=== PATIENT | male | born 1955 | race African-American/Black ===

== ENCOUNTER 2016-12-22 18:45 | Inpatient (IN) | payer OTHER ==
[2016-12-22 19:14] VITALS: BMI 22.3
[2016-12-22] MEDS ORDERED: MENTHOL/PHENOL 1 EACH UD MM PRN (19:44)
[2016-12-22] MEDS ORDERED: IBUPROFEN 400 MG TABLET (FP) PO PRN (19:44)
[2016-12-22] MEDS ORDERED: guaiFENesin/D-METHORPHAN HB 10 ML UNIT-DOSE CUPS PO PRN (19:44)
[2016-12-22] MEDS ORDERED: MAGNESIUM CITRATE 300 ML BOTTLE PO PRN (19:44)
[2016-12-22] MEDS ORDERED: LOPERAMIDE HCL 2 MG CAPSULE PO PRN (19:44)
[2016-12-22] MEDS ORDERED: hydrOXYzine PAMOATE 50 MG CAPSULE (FP) PO PRN (19:44)
[2016-12-22] MEDS ORDERED: NICOTINE POLACRILEX 2 MG GUM BC PRN (19:44)
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
[2016-12-22] MEDS: RANITIDINE HCL 150 MG TABLET (FP) PO SCH (21:52)
[2016-12-22] MEDS: THIAMINE HCL 100 MG TABLET (FP) PO SCH (21:52)
[2016-12-22] MEDS: RALTEGRAVIR POTASSIUM 400 MG TAB PO SCH (21:53)
[2016-12-22] MEDS: INSULIN SLIDING SCALE (NOVOLOG) 1 VIAL SQ SCH (21:55)
[2016-12-22] MEDS ORDERED: INSULIN (NOVOLOG) ASPART 100 UNITS/ML 10ML VIAL ONE (21:56)
[2016-12-22] MEDS: hydrALAZINE HCL 25 MG TABLET (FP) PO SCH (22:54)
[2016-12-22] MEDS: TAMSULOSIN HCL 0.4 MG CAP.ER.24H (FP) PO SCH (22:54)
[2016-12-22] MEDS: diphenhydrAMINE HCL 50 MG CAPSULE PO PRN (22:55)
[2016-12-22] MEDS: ETRAVIRINE 200 MG TABLET PO SCH (23:25)
[2016-12-22 23:34] LABS: URINE APPEARANCE CLEAR; URINE BILIRUBIN NEGATIVE (NEGATIVE); URINE BLOOD NEGATIVE (NEGATIVE); URINE COLOR YELLOW; URINE GLUCOSE (UA) 3+ (NEGATIVE); URINE KETONE NEGATIVE (NEGATIVE); URINE LEUK ESTERASE NEGATIVE (NEGATIVE); URINE NITRITE NEGATIVE (NEGATIVE); URINE UROBILINOGEN NEGATIVE E.U./dl (0.2-1.0)
[2016-12-22 23:35] LABS: URINE PROTEIN 1+ (NEGATIVE)
[2016-12-22 23:38] LABS: URINE HYALINE CAST 1 /lpf; URINE MUCUS RARE; URINE WBC 1 /hpf (3-5)
--- NOTE | 2016-12-23 06:36 | HP ---
Psychiatrist Admission - Data Date of interview: 12/23/16 Admission source: [facility] detox Identifying data: This is the first [facility] admission for this 61 years old single male, father of 2 children, unemployed on SSI, domiciled living in his own rented apartment Medical History: Significant for HTN, type II DM, BPH, HIV+, S/P surgery for removal of right rib and S/P surgery right temporal skull Psychiatric History: Reports that his first psychiatric contact was 5 years ago when he saw a private psychiatrist in the [place] for depression and was prescribed Zoloft which he took for 2 years. Claims he stopped taking it because he was feeling better. At present, denies feeling depressed but sleeps poorly because he is not drinking alcohol. Physical/Sexual Abuse/Trauma History: Denies history of physical, sexual abuse as wel as DV relationship Additional Comment: Denies criminal history. No service Vital Signs: Vital Signs - 24 hr 12/22/16 12/23/16 12/23/16 19:03 00:30 03:30 Temperature 96.8 F L Pulse Rate 104 H Respiratory 18 18 18 Rate Blood Pressure 117/65 Allergies/Adverse Reactions: Allergies Allergy/AdvReac Type Severity Reaction Status Date / Time No Known Allergies Allergy Verified 12/22/16 19:20 Date of last physical exam: 12/22/16 Concur with the findings of this exam: Yes - Substance Abuse/Tx History Hx Alcohol Use: Yes Hx Substance Use: Yes Substance Use Type: Alcohol (Started drinking alcohol at age 18, consumes 3x 6Pk daily. Last drink on 12/21/16), Cocaine (Started smoking crack cocaine at age 48, consumes 2 bags daily. Last smoked on 12/21/16) Hx Substance Use Treatment: Yes (One previous recent detox @ [facility]. [facility] in rehab) - Admission Criteria Previous failed treatment: No Poor recovery environment: Yes Comorbidities: Yes Lacks judgement: Yes Mental Status Exam - Mental Status Exam Alert and Oriented to: Time, Place, Person Cognitive Function: Fair Patient Appearance: Well Groomed Mood: Hopeful, Euthymic Patient Behavior: Cooperative Speech Pattern: Clear Voice Loudness: Normal Thought Process: Intact Thought Disorder: Not Present Hallucinations: Denies Suicidal Ideation: Denies Homicidal Ideation: Denies Insight/Judgement: Fair Sleep: Poorly Appetite: Good Muscle strength/Tone: Normal Gait/Station: Normal Psychiatric Findings - Problem List ([place] 1, 2,3) (1) Alcohol dependence with uncomplicated withdrawal Current Visit: Yes Status: Acute (2) Cocaine dependence Current Visit: Yes Status: Acute (3) Nicotine dependence Current Visit: Yes Status: Acute Qualifiers: Nicotine product type: cigarettes Substance use status: in withdrawal Qualified Code(s): F17.213 - Nicotine dependence, cigarettes, with withdrawal (4) Substance-induced sleep disorder Current Visit: Yes Status: Acute (5) BPH (benign prostatic hyperplasia) Current Visit: Yes Status: Acute Qualifiers: Prostatic enlargement morphology: non-nodular Lower urinary tract symptom presence: symptoms absent Qualified Code(s): N40.0 - Enlarged prostate without lower urinary tract symptoms (6) Diabetes mellitus, type II, insulin dependent Current Visit: Yes Status: Acute (7) GERD (gastroesophageal reflux disease) Current Visit: Yes Status: Acute Qualifiers: Esophagitis presence: without esophagitis Qualified Code(s): K21.9 - Gastro-esophageal reflux disease without esophagitis (8) HIV (human immunodeficiency virus infection) Current Visit: Yes Status: Acute (9) Hypertension Current Visit: Yes Status: Acute Qualifiers: Hypertension type: essential hypertension Qualified Code(s): I10 - Essential (primary) hypertension (10) MDD (major depressive disorder), single episode, in full remission Current Visit: Yes Status: Acute - Initial Treatment Plan Initial Treatment Plan: Monitor progress
[2016-12-23] MEDS: INSULIN SLIDING SCALE (NOVOLOG) 1 VIAL SQ SCH ×4 (07:21→21:30)
[2016-12-23] MEDS: metFORMIN HCL 500 MG TABLET (FP) PO SCH ×2 (07:21→16:55)
[2016-12-23] MEDS ORDERED: INSULIN (NOVOLOG) ASPART 100 UNITS/ML 10ML VIAL ONE ×3 (07:30→22:28)
[2016-12-23] MEDS ORDERED: TUBERCULIN PPD 5 TU/0.1ML VIAL ID ONE (07:47)
[2016-12-23] MEDS: RANITIDINE HCL 150 MG TABLET (FP) PO SCH ×2 (10:06→21:24)
[2016-12-23] MEDS: PRENATAL VITAMINS W/ FOLIC ACID TABLET (FP) PO SCH (10:06)
[2016-12-23] MEDS: RALTEGRAVIR POTASSIUM 400 MG TAB PO SCH ×2 (10:06→22:04)
[2016-12-23] MEDS: LOSARTAN POTASSIUM 50 MG TABLET (FP) PO SCH (10:06)
[2016-12-23] MEDS: NICOTINE 14 MG/24 HOURS TOPICAL PATCH TD SCH (10:07)
[2016-12-23] MEDS: ETRAVIRINE 200 MG TABLET PO SCH ×2 (10:08→22:04)
[2016-12-23] MEDS: RITONAVIR 100 MG TABLET PO SCH (10:09)
[2016-12-23] MEDS: hydrALAZINE HCL 25 MG TABLET (FP) PO SCH ×2 (10:09→22:03)
--- NOTE | 2016-12-23 10:46 | EKG ---
Test Reason : Blood Pressure : / mmHG Vent. Rate : 093 BPM Atrial Rate : 093 BPM P-R Int : 146 ms QRS Dur : 070 ms QT Int : 330 ms P-R-T Axes : 043 064 054 degrees QTc Int : 410 ms SINUS RHYTHM WITH OCCASIONAL PREMATURE VENTRICULAR COMPLEXES NO PREVIOUS ECGS AVAILABLE Confirmed by ROMULO KESSLER MD ([id number]) on 12/23/2016 10:46:40 AM Referred By: Confirmed By:ROMULO KESSLER MD
[2016-12-23 13:31] LABS: MCH 25.2 pg (25.7-33.7); MCHC 30.9 g/dl (32.0-35.9); MEAN CELL VOLUME 81.5 fl (80-96); MEAN PLT VOLUME 10.3 fl (7.5-11.1); PLATELET COUNT 227 K/MM3 (134-434); RDW 15.2 % (11.9-15.9); WHITE BLOOD COUNT 7.1 K/mm3 (4.0-10.0)
[2016-12-23 13:57] LABS: ALBUMIN 3.5 g/dl (3.4-5.0); ANION GAP 12 (8-16); BILIRUBIN,TOTAL 0.4 mg/dL (0.2-1.0); CALCIUM 9.3 mg/dL (8.5-10.1); CO2 23 mmol/L (21-32); GLUCOSE,RANDOM 142 mg/dL (74-106); SGOT/AST 12 U/L (15-37); SGPT/ALT 20 U/L (12-78)
[2016-12-23 13:58] LABS: ALK PHOS 85 U/L (45-117); CREATININE 1.2 mg/dL (0.7-1.3); TOT PROT 7.9 g/dl (6.4-8.2)
[2016-12-23 14:16] LABS: HIV 1 & 2 AB PRELIMINARY POSITIVE; HIV 1 AGp24 NEGATIVE
[2016-12-23] MEDS: diphenhydrAMINE HCL 50 MG CAPSULE PO PRN (21:24)
[2016-12-23] MEDS: THIAMINE HCL 100 MG TABLET (FP) PO SCH (21:24)
[2016-12-23] MEDS: TAMSULOSIN HCL 0.4 MG CAP.ER.24H (FP) PO SCH (22:04)
[2016-12-24] MEDS: INSULIN SLIDING SCALE (NOVOLOG) 1 VIAL SQ SCH ×4 (07:04→21:34)
[2016-12-24] MEDS: metFORMIN HCL 500 MG TABLET (FP) PO SCH ×2 (07:04→16:48)
[2016-12-24] MEDS ORDERED: INSULIN (NOVOLOG) ASPART 100 UNITS/ML 10ML VIAL ONE ×3 (07:05→22:25)
[2016-12-24] MEDS: PRENATAL VITAMINS W/ FOLIC ACID TABLET (FP) PO SCH (10:08)
[2016-12-24] MEDS: NICOTINE 14 MG/24 HOURS TOPICAL PATCH TD SCH (10:08)
[2016-12-24] MEDS: RANITIDINE HCL 150 MG TABLET (FP) PO SCH ×2 (10:08→21:32)
[2016-12-24] MEDS: LOSARTAN POTASSIUM 50 MG TABLET (FP) PO SCH (10:08)
[2016-12-24] MEDS: RALTEGRAVIR POTASSIUM 400 MG TAB PO SCH ×2 (10:08→21:34)
[2016-12-24] MEDS: hydrALAZINE HCL 25 MG TABLET (FP) PO SCH ×2 (10:09→21:33)
[2016-12-24] MEDS: MAG HYDROX/AL HYDROX/SIMETH 30 ML UNIT-DOSE CUP PO PRN ×2 (14:28→21:33)
[2016-12-24] MEDS: ETRAVIRINE 200 MG TABLET PO SCH ×2 (15:30→21:34)
[2016-12-24] MEDS: RITONAVIR 100 MG TABLET PO SCH (15:30)
[2016-12-24] MEDS: THIAMINE HCL 100 MG TABLET (FP) PO SCH (21:32)
[2016-12-24] MEDS: diphenhydrAMINE HCL 50 MG CAPSULE PO PRN (21:32)
[2016-12-24] MEDS: TAMSULOSIN HCL 0.4 MG CAP.ER.24H (FP) PO SCH (21:32)
[2016-12-25] MEDS: INSULIN SLIDING SCALE (NOVOLOG) 1 VIAL SQ SCH ×4 (07:14→21:26)
[2016-12-25] MEDS: metFORMIN HCL 500 MG TABLET (FP) PO SCH ×2 (07:14→16:45)
[2016-12-25] MEDS ORDERED: INSULIN (NOVOLOG) ASPART 100 UNITS/ML 10ML VIAL ONE ×4 (07:14→21:54)
[2016-12-25] MEDS: RALTEGRAVIR POTASSIUM 400 MG TAB PO SCH ×2 (09:58→21:25)
[2016-12-25] MEDS: RANITIDINE HCL 150 MG TABLET (FP) PO SCH ×2 (09:58→21:25)
[2016-12-25] MEDS: RITONAVIR 100 MG TABLET PO SCH (09:58)
[2016-12-25] MEDS: LOSARTAN POTASSIUM 50 MG TABLET (FP) PO SCH (09:58)
[2016-12-25] MEDS: PRENATAL VITAMINS W/ FOLIC ACID TABLET (FP) PO SCH (09:58)
[2016-12-25] MEDS: ETRAVIRINE 200 MG TABLET PO SCH ×2 (09:58→21:26)
[2016-12-25] MEDS: NICOTINE 14 MG/24 HOURS TOPICAL PATCH TD SCH (10:00)
[2016-12-25] MEDS: hydrALAZINE HCL 25 MG TABLET (FP) PO SCH ×2 (10:25→21:26)
[2016-12-25] MEDS: MAG HYDROX/AL HYDROX/SIMETH 30 ML UNIT-DOSE CUP PO PRN (11:12)
[2016-12-25] MEDS: P-EPHED 60MG/TRIPROLIDI 2.5MG TABLET PO PRN (15:58)
[2016-12-25] MEDS: THIAMINE HCL 100 MG TABLET (FP) PO SCH (21:25)
[2016-12-25] MEDS: diphenhydrAMINE HCL 50 MG CAPSULE PO PRN (21:25)
[2016-12-25] MEDS: TAMSULOSIN HCL 0.4 MG CAP.ER.24H (FP) PO SCH (21:26)
[2016-12-26] MEDS: metFORMIN HCL 500 MG TABLET (FP) PO SCH ×2 (06:24→16:50)
[2016-12-26] MEDS: P-EPHED 60MG/TRIPROLIDI 2.5MG TABLET PO PRN (06:26)
[2016-12-26] MEDS: INSULIN SLIDING SCALE (NOVOLOG) 1 VIAL SQ SCH ×3 (07:57→16:52)
[2016-12-26] MEDS: RITONAVIR 100 MG TABLET PO SCH (09:49)
[2016-12-26] MEDS: PRENATAL VITAMINS W/ FOLIC ACID TABLET (FP) PO SCH (09:49)
[2016-12-26] MEDS: RANITIDINE HCL 150 MG TABLET (FP) PO SCH ×2 (09:49→21:48)
[2016-12-26] MEDS: LOSARTAN POTASSIUM 50 MG TABLET (FP) PO SCH (09:49)
[2016-12-26] MEDS: RALTEGRAVIR POTASSIUM 400 MG TAB PO SCH ×2 (09:49→21:48)
[2016-12-26] MEDS: NICOTINE 14 MG/24 HOURS TOPICAL PATCH TD SCH (09:50)
[2016-12-26] MEDS: ETRAVIRINE 200 MG TABLET PO SCH ×2 (10:34→21:46)
[2016-12-26] MEDS: hydrALAZINE HCL 25 MG TABLET (FP) PO SCH ×2 (10:34→21:49)
[2016-12-26] MEDS ORDERED: INSULIN (NOVOLOG) ASPART 100 UNITS/ML 10ML VIAL ONE ×2 (11:28→16:51)
[2016-12-26] MEDS: THIAMINE HCL 100 MG TABLET (FP) PO SCH (21:48)
[2016-12-26] MEDS: TAMSULOSIN HCL 0.4 MG CAP.ER.24H (FP) PO SCH (21:48)
[2016-12-26] MEDS: ACETAMINOPHEN 325 MG TABLET (FP) PO PRN (21:48)
[2016-12-26] MEDS: HYDROCORTISONE 1% TOPICAL CREAM 30 GM TUBE TP SCH (21:49)
[2016-12-26] MEDS: COLLOIDAL OATMEAL 1 BAR EACH TP PRN (21:50)
[2016-12-26] MEDS: MAG HYDROX/AL HYDROX/SIMETH 30 ML UNIT-DOSE CUP PO PRN (22:20)
[2016-12-27] MEDS: metFORMIN HCL 500 MG TABLET (FP) PO SCH ×2 (06:24→16:36)
[2016-12-27] MEDS: INSULIN SLIDING SCALE (NOVOLOG) 1 VIAL SQ SCH ×2 (06:56→16:38)
[2016-12-27] MEDS: PRENATAL VITAMINS W/ FOLIC ACID TABLET (FP) PO SCH (09:51)
[2016-12-27] MEDS: LOSARTAN POTASSIUM 50 MG TABLET (FP) PO SCH (09:51)
[2016-12-27] MEDS: RANITIDINE HCL 150 MG TABLET (FP) PO SCH ×2 (09:52→21:42)
[2016-12-27] MEDS: RITONAVIR 100 MG TABLET PO SCH (09:52)
[2016-12-27] MEDS: RALTEGRAVIR POTASSIUM 400 MG TAB PO SCH ×2 (09:52→21:43)
[2016-12-27] MEDS: ETRAVIRINE 200 MG TABLET PO SCH ×2 (09:52→21:43)
[2016-12-27] MEDS: NICOTINE 14 MG/24 HOURS TOPICAL PATCH TD SCH (09:53)
[2016-12-27] MEDS: HYDROCORTISONE 1% TOPICAL CREAM 30 GM TUBE TP SCH ×2 (09:54→21:44)
[2016-12-27] MEDS: hydrALAZINE HCL 25 MG TABLET (FP) PO SCH ×2 (09:55→21:42)
[2016-12-27] MEDS ORDERED: INSULIN (NOVOLOG) ASPART 100 UNITS/ML 10ML VIAL ONE (16:36)
[2016-12-27] MEDS: THIAMINE HCL 100 MG TABLET (FP) PO SCH (21:41)
[2016-12-27] MEDS: TAMSULOSIN HCL 0.4 MG CAP.ER.24H (FP) PO SCH (21:42)
[2016-12-27] MEDS: diphenhydrAMINE HCL 50 MG CAPSULE PO PRN (21:42)
[2016-12-27] MEDS: ACETAMINOPHEN 325 MG TABLET (FP) PO PRN (21:43)
[2016-12-28] MEDS: INSULIN SLIDING SCALE (NOVOLOG) 1 VIAL SQ SCH ×2 (06:13→16:29)
[2016-12-28] MEDS: metFORMIN HCL 500 MG TABLET (FP) PO SCH ×2 (06:13→16:28)
[2016-12-28] MEDS ORDERED: INSULIN (NOVOLOG) ASPART 100 UNITS/ML 10ML VIAL ONE ×2 (06:58→16:28)
[2016-12-28] MEDS: P-EPHED 60MG/TRIPROLIDI 2.5MG TABLET PO PRN (07:13)
[2016-12-28] MEDS: HYDROCORTISONE 1% TOPICAL CREAM 30 GM TUBE TP SCH ×2 (09:55→21:17)
[2016-12-28] MEDS: RANITIDINE HCL 150 MG TABLET (FP) PO SCH ×2 (09:55→21:16)
[2016-12-28] MEDS: RALTEGRAVIR POTASSIUM 400 MG TAB PO SCH ×2 (09:55→21:17)
[2016-12-28] MEDS: LOSARTAN POTASSIUM 50 MG TABLET (FP) PO SCH (09:55)
[2016-12-28] MEDS: PRENATAL VITAMINS W/ FOLIC ACID TABLET (FP) PO SCH (09:55)
[2016-12-28] MEDS: hydrALAZINE HCL 25 MG TABLET (FP) PO SCH ×2 (09:55→21:17)
[2016-12-28] MEDS: NICOTINE 14 MG/24 HOURS TOPICAL PATCH TD SCH (09:56)
[2016-12-28] MEDS: ETRAVIRINE 200 MG TABLET PO SCH ×2 (09:56→21:16)
[2016-12-28] MEDS: RITONAVIR 100 MG TABLET PO SCH (09:56)
[2016-12-28] MEDS: ACETAMINOPHEN 325 MG TABLET (FP) PO PRN (09:57)
[2016-12-28] MEDS: THIAMINE HCL 100 MG TABLET (FP) PO SCH (21:16)
[2016-12-28] MEDS: diphenhydrAMINE HCL 50 MG CAPSULE PO PRN (21:17)
[2016-12-28] MEDS: TAMSULOSIN HCL 0.4 MG CAP.ER.24H (FP) PO SCH (21:17)
[2016-12-29] MEDS: metFORMIN HCL 500 MG TABLET (FP) PO SCH ×2 (06:36→17:01)
[2016-12-29] MEDS ORDERED: INSULIN (NOVOLOG) ASPART 100 UNITS/ML 10ML VIAL ONE ×2 (06:36→17:45)
[2016-12-29] MEDS: INSULIN SLIDING SCALE (NOVOLOG) 1 VIAL SQ SCH ×2 (06:38→17:02)
[2016-12-29] MEDS: P-EPHED 60MG/TRIPROLIDI 2.5MG TABLET PO PRN (07:06)
[2016-12-29] MEDS: LOSARTAN POTASSIUM 50 MG TABLET (FP) PO SCH (09:36)
[2016-12-29] MEDS: ETRAVIRINE 200 MG TABLET PO SCH ×2 (09:36→22:09)
[2016-12-29] MEDS: RALTEGRAVIR POTASSIUM 400 MG TAB PO SCH ×2 (09:36→21:19)
[2016-12-29] MEDS: RANITIDINE HCL 150 MG TABLET (FP) PO SCH ×2 (09:36→21:19)
[2016-12-29] MEDS: RITONAVIR 100 MG TABLET PO SCH (09:36)
[2016-12-29] MEDS: HYDROCORTISONE 1% TOPICAL CREAM 30 GM TUBE TP SCH ×2 (09:36→22:09)
[2016-12-29] MEDS: PRENATAL VITAMINS W/ FOLIC ACID TABLET (FP) PO SCH (09:36)
[2016-12-29] MEDS: NICOTINE 14 MG/24 HOURS TOPICAL PATCH TD SCH (09:37)
[2016-12-29] MEDS: hydrALAZINE HCL 25 MG TABLET (FP) PO SCH ×2 (09:37→22:08)
[2016-12-29] MEDS: LIDOCAINE 5% TOPICAL PATCH TP SCH (12:40)
[2016-12-29] MEDS: diphenhydrAMINE HCL 50 MG CAPSULE PO PRN (21:19)
[2016-12-29] MEDS: THIAMINE HCL 100 MG TABLET (FP) PO SCH (21:19)
[2016-12-29] MEDS: IBUPROFEN 400 MG TABLET (FP) PO PRN (21:19)
[2016-12-29] MEDS: TAMSULOSIN HCL 0.4 MG CAP.ER.24H (FP) PO SCH (21:19)
[2016-12-30] MEDS: metFORMIN HCL 500 MG TABLET (FP) PO SCH ×2 (06:26→16:55)
[2016-12-30] MEDS: INSULIN SLIDING SCALE (NOVOLOG) 1 VIAL SQ SCH ×2 (06:27→16:30)
[2016-12-30] MEDS ORDERED: INSULIN (NOVOLOG) ASPART 100 UNITS/ML 10ML VIAL ONE (06:28)
[2016-12-30] MEDS: RALTEGRAVIR POTASSIUM 400 MG TAB PO SCH ×2 (09:50→21:29)
[2016-12-30] MEDS: RANITIDINE HCL 150 MG TABLET (FP) PO SCH ×2 (09:50→21:29)
[2016-12-30] MEDS: hydrALAZINE HCL 25 MG TABLET (FP) PO SCH ×2 (09:50→22:00)
[2016-12-30] MEDS: PRENATAL VITAMINS W/ FOLIC ACID TABLET (FP) PO SCH (09:50)
[2016-12-30] MEDS: LOSARTAN POTASSIUM 50 MG TABLET (FP) PO SCH (09:51)
[2016-12-30] MEDS: ETRAVIRINE 200 MG TABLET PO SCH ×2 (09:51→23:29)
[2016-12-30] MEDS: RITONAVIR 100 MG TABLET PO SCH (09:51)
[2016-12-30] MEDS: HYDROCORTISONE 1% TOPICAL CREAM 30 GM TUBE TP SCH ×2 (09:52→23:29)
[2016-12-30] MEDS: NICOTINE 14 MG/24 HOURS TOPICAL PATCH TD SCH (09:52)
[2016-12-30] MEDS: LIDOCAINE 5% TOPICAL PATCH TP SCH (09:52)
[2016-12-30] MEDS: THIAMINE HCL 100 MG TABLET (FP) PO SCH (21:29)
[2016-12-30] MEDS: TAMSULOSIN HCL 0.4 MG CAP.ER.24H (FP) PO SCH (21:29)
[2016-12-30] MEDS: diphenhydrAMINE HCL 50 MG CAPSULE PO PRN (21:29)
[2016-12-30] MEDS: MAGNESIUM HYDROX 2400MG/30ML ORAL SUSPENSION 30 ML CUP PO PRN (21:30)
[2016-12-31] MEDS: P-EPHED 60MG/TRIPROLIDI 2.5MG TABLET PO PRN ×2 (06:32→15:29)
[2016-12-31] MEDS: metFORMIN HCL 500 MG TABLET (FP) PO SCH ×2 (06:32→16:48)
[2016-12-31] MEDS: INSULIN SLIDING SCALE (NOVOLOG) 1 VIAL SQ SCH ×2 (06:34→16:50)
[2016-12-31] MEDS: RALTEGRAVIR POTASSIUM 400 MG TAB PO SCH ×2 (09:39→22:09)
[2016-12-31] MEDS: RANITIDINE HCL 150 MG TABLET (FP) PO SCH ×2 (09:39→22:08)
[2016-12-31] MEDS: LOSARTAN POTASSIUM 50 MG TABLET (FP) PO SCH (09:39)
[2016-12-31] MEDS: NICOTINE 14 MG/24 HOURS TOPICAL PATCH TD SCH (09:39)
[2016-12-31] MEDS: hydrALAZINE HCL 25 MG TABLET (FP) PO SCH ×2 (09:40→22:08)
[2016-12-31] MEDS: ETRAVIRINE 200 MG TABLET PO SCH ×2 (09:40→22:08)
[2016-12-31] MEDS: PRENATAL VITAMINS W/ FOLIC ACID TABLET (FP) PO SCH (09:40)
[2016-12-31] MEDS: HYDROCORTISONE 1% TOPICAL CREAM 30 GM TUBE TP SCH ×2 (09:41→22:09)
[2016-12-31] MEDS: LIDOCAINE 5% TOPICAL PATCH TP SCH (09:41)
[2016-12-31] MEDS: RITONAVIR 100 MG TABLET PO SCH (09:41)
[2016-12-31] MEDS ORDERED: INSULIN (NOVOLOG) ASPART 100 UNITS/ML 10ML VIAL ONE (16:48)
[2016-12-31] MEDS: THIAMINE HCL 100 MG TABLET (FP) PO SCH (22:08)
[2016-12-31] MEDS: TAMSULOSIN HCL 0.4 MG CAP.ER.24H (FP) PO SCH (22:09)
[2016-12-31] MEDS: diphenhydrAMINE HCL 50 MG CAPSULE PO PRN (22:09)
[2016-12-31] MEDS: MAGNESIUM HYDROX 2400MG/30ML ORAL SUSPENSION 30 ML CUP PO PRN (22:11)
[2017-01-01] MEDS: metFORMIN HCL 500 MG TABLET (FP) PO SCH ×2 (07:11→16:40)
[2017-01-01] MEDS: INSULIN SLIDING SCALE (NOVOLOG) 1 VIAL SQ SCH ×2 (07:14→16:42)
[2017-01-01] MEDS: RALTEGRAVIR POTASSIUM 400 MG TAB PO SCH ×2 (09:40→21:59)
[2017-01-01] MEDS: LOSARTAN POTASSIUM 50 MG TABLET (FP) PO SCH (09:41)
[2017-01-01] MEDS: RANITIDINE HCL 150 MG TABLET (FP) PO SCH ×2 (09:41→21:59)
[2017-01-01] MEDS: ETRAVIRINE 200 MG TABLET PO SCH ×2 (09:41→22:00)
[2017-01-01] MEDS: LIDOCAINE 5% TOPICAL PATCH TP SCH (09:41)
[2017-01-01] MEDS: hydrALAZINE HCL 25 MG TABLET (FP) PO SCH ×2 (09:41→21:59)
[2017-01-01] MEDS: RITONAVIR 100 MG TABLET PO SCH (09:41)
[2017-01-01] MEDS: PRENATAL VITAMINS W/ FOLIC ACID TABLET (FP) PO SCH (09:42)
[2017-01-01] MEDS: HYDROCORTISONE 1% TOPICAL CREAM 30 GM TUBE TP SCH ×2 (09:42→22:00)
[2017-01-01] MEDS: NICOTINE 14 MG/24 HOURS TOPICAL PATCH TD SCH (09:42)
[2017-01-01] MEDS ORDERED: INSULIN (NOVOLOG) ASPART 100 UNITS/ML 10ML VIAL ONE (16:40)
[2017-01-01] MEDS: THIAMINE HCL 100 MG TABLET (FP) PO SCH (21:58)
[2017-01-01] MEDS: IBUPROFEN 400 MG TABLET (FP) PO PRN (21:58)
[2017-01-01] MEDS: TAMSULOSIN HCL 0.4 MG CAP.ER.24H (FP) PO SCH (21:59)
[2017-01-02] MEDS: metFORMIN HCL 500 MG TABLET (FP) PO SCH ×2 (06:11→17:00)
[2017-01-02] MEDS: INSULIN SLIDING SCALE (NOVOLOG) 1 VIAL SQ SCH ×2 (06:12→17:03)
[2017-01-02] MEDS: LOSARTAN POTASSIUM 50 MG TABLET (FP) PO SCH (10:04)
[2017-01-02] MEDS: RALTEGRAVIR POTASSIUM 400 MG TAB PO SCH ×2 (10:04→21:45)
[2017-01-02] MEDS: HYDROCORTISONE 1% TOPICAL CREAM 30 GM TUBE TP SCH ×2 (10:04→21:45)
[2017-01-02] MEDS: PRENATAL VITAMINS W/ FOLIC ACID TABLET (FP) PO SCH (10:05)
[2017-01-02] MEDS: RITONAVIR 100 MG TABLET PO SCH (10:05)
[2017-01-02] MEDS: LIDOCAINE 5% TOPICAL PATCH TP SCH (10:05)
[2017-01-02] MEDS: hydrALAZINE HCL 25 MG TABLET (FP) PO SCH ×2 (10:05→21:45)
[2017-01-02] MEDS: ETRAVIRINE 200 MG TABLET PO SCH ×2 (10:05→21:45)
[2017-01-02] MEDS: NICOTINE 14 MG/24 HOURS TOPICAL PATCH TD SCH (10:05)
[2017-01-02] MEDS: MAGNESIUM HYDROX 2400MG/30ML ORAL SUSPENSION 30 ML CUP PO PRN (10:06)
[2017-01-02] MEDS: RANITIDINE HCL 150 MG TABLET (FP) PO SCH ×2 (10:07→21:45)
[2017-01-02] MEDS: THIAMINE HCL 100 MG TABLET (FP) PO SCH (21:45)
[2017-01-02] MEDS: TAMSULOSIN HCL 0.4 MG CAP.ER.24H (FP) PO SCH (21:45)
[2017-01-02] MEDS: diphenhydrAMINE HCL 50 MG CAPSULE PO PRN (21:45)
[2017-01-03] MEDS: P-EPHED 60MG/TRIPROLIDI 2.5MG TABLET PO PRN (06:32)
[2017-01-03] MEDS: metFORMIN HCL 500 MG TABLET (FP) PO SCH ×2 (07:11→16:57)
[2017-01-03] MEDS: INSULIN SLIDING SCALE (NOVOLOG) 1 VIAL SQ SCH ×2 (07:12→16:58)
[2017-01-03] MEDS ORDERED: INSULIN (NOVOLOG) ASPART 100 UNITS/ML 10ML VIAL ONE (07:12)
[2017-01-03] MEDS: RALTEGRAVIR POTASSIUM 400 MG TAB PO SCH ×2 (09:36→21:56)
[2017-01-03] MEDS: LOSARTAN POTASSIUM 50 MG TABLET (FP) PO SCH (09:36)
[2017-01-03] MEDS: PRENATAL VITAMINS W/ FOLIC ACID TABLET (FP) PO SCH (09:36)
[2017-01-03] MEDS: RANITIDINE HCL 150 MG TABLET (FP) PO SCH ×2 (09:36→21:55)
[2017-01-03] MEDS: RITONAVIR 100 MG TABLET PO SCH (09:37)
[2017-01-03] MEDS: NICOTINE 14 MG/24 HOURS TOPICAL PATCH TD SCH (09:37)
[2017-01-03] MEDS: ETRAVIRINE 200 MG TABLET PO SCH ×2 (09:37→21:56)
[2017-01-03] MEDS: LIDOCAINE 5% TOPICAL PATCH TP SCH (09:39)
[2017-01-03] MEDS: HYDROCORTISONE 1% TOPICAL CREAM 30 GM TUBE TP SCH ×2 (09:41→21:56)
[2017-01-03] MEDS: hydrALAZINE HCL 25 MG TABLET (FP) PO SCH ×2 (10:05→21:56)
[2017-01-03] MEDS: TAMSULOSIN HCL 0.4 MG CAP.ER.24H (FP) PO SCH (21:55)
[2017-01-03] MEDS: THIAMINE HCL 100 MG TABLET (FP) PO SCH (21:55)
[2017-01-03] MEDS: diphenhydrAMINE HCL 50 MG CAPSULE PO PRN (21:55)
[2017-01-04] MEDS: CYCLOBENZAPRINE HCL 10 MG TABLET (FP) PO PRN (06:17)
[2017-01-04] MEDS: P-EPHED 60MG/TRIPROLIDI 2.5MG TABLET PO PRN (06:17)
[2017-01-04] MEDS: IBUPROFEN 400 MG TABLET (FP) PO PRN (06:17)
[2017-01-04] MEDS: INSULIN SLIDING SCALE (NOVOLOG) 1 VIAL SQ SCH ×2 (07:21→16:52)
[2017-01-04] MEDS: metFORMIN HCL 500 MG TABLET (FP) PO SCH ×2 (07:21→16:51)
[2017-01-04] MEDS ORDERED: INSULIN (NOVOLOG) ASPART 100 UNITS/ML 10ML VIAL ONE (07:21)
[2017-01-04] MEDS: PRENATAL VITAMINS W/ FOLIC ACID TABLET (FP) PO SCH (09:46)
[2017-01-04] MEDS: LOSARTAN POTASSIUM 50 MG TABLET (FP) PO SCH (09:46)
[2017-01-04] MEDS: RANITIDINE HCL 150 MG TABLET (FP) PO SCH ×2 (09:46→21:24)
[2017-01-04] MEDS: RALTEGRAVIR POTASSIUM 400 MG TAB PO SCH ×2 (09:46→21:24)
[2017-01-04] MEDS: RITONAVIR 100 MG TABLET PO SCH (09:46)
[2017-01-04] MEDS: NICOTINE 14 MG/24 HOURS TOPICAL PATCH TD SCH (09:47)
[2017-01-04] MEDS: LIDOCAINE 5% TOPICAL PATCH TP SCH (09:47)
[2017-01-04] MEDS: ETRAVIRINE 200 MG TABLET PO SCH ×2 (09:47→21:25)
[2017-01-04] MEDS: HYDROCORTISONE 1% TOPICAL CREAM 30 GM TUBE TP SCH ×2 (09:48→21:23)
[2017-01-04] MEDS: hydrALAZINE HCL 25 MG TABLET (FP) PO SCH ×2 (09:50→21:24)
[2017-01-04] MEDS: THIAMINE HCL 100 MG TABLET (FP) PO SCH (21:23)
[2017-01-04] MEDS: diphenhydrAMINE HCL 50 MG CAPSULE PO PRN (21:24)
[2017-01-04] MEDS: TAMSULOSIN HCL 0.4 MG CAP.ER.24H (FP) PO SCH (21:24)
[2017-01-04] MEDS: MAGNESIUM HYDROX 2400MG/30ML ORAL SUSPENSION 30 ML CUP PO PRN (21:26)
[2017-01-05] MEDS: metFORMIN HCL 500 MG TABLET (FP) PO SCH ×2 (06:38→16:22)
[2017-01-05] MEDS: P-EPHED 60MG/TRIPROLIDI 2.5MG TABLET PO PRN (06:40)
[2017-01-05] MEDS: INSULIN SLIDING SCALE (NOVOLOG) 1 VIAL SQ SCH ×2 (07:04→16:24)
[2017-01-05] MEDS: LOSARTAN POTASSIUM 50 MG TABLET (FP) PO SCH (09:40)
[2017-01-05] MEDS: RALTEGRAVIR POTASSIUM 400 MG TAB PO SCH ×2 (09:40→21:57)
[2017-01-05] MEDS: RANITIDINE HCL 150 MG TABLET (FP) PO SCH ×2 (09:41→21:56)
[2017-01-05] MEDS: hydrALAZINE HCL 25 MG TABLET (FP) PO SCH ×2 (09:41→21:56)
[2017-01-05] MEDS: RITONAVIR 100 MG TABLET PO SCH (09:41)
[2017-01-05] MEDS: LIDOCAINE 5% TOPICAL PATCH TP SCH (09:41)
[2017-01-05] MEDS: HYDROCORTISONE 1% TOPICAL CREAM 30 GM TUBE TP SCH ×2 (09:42→21:57)
[2017-01-05] MEDS: NICOTINE 14 MG/24 HOURS TOPICAL PATCH TD SCH (09:42)
[2017-01-05] MEDS: ETRAVIRINE 200 MG TABLET PO SCH ×2 (09:42→21:55)
[2017-01-05] MEDS: PRENATAL VITAMINS W/ FOLIC ACID TABLET (FP) PO SCH (09:45)
[2017-01-05] MEDS: CYCLOBENZAPRINE HCL 10 MG TABLET (FP) PO PRN (16:22)
[2017-01-05] MEDS ORDERED: INSULIN (NOVOLOG) ASPART 100 UNITS/ML 10ML VIAL ONE (16:22)
[2017-01-05] MEDS: IBUPROFEN 400 MG TABLET (FP) PO PRN (16:22)
[2017-01-05] MEDS: COLLOIDAL OATMEAL 1 BAR EACH TP PRN (16:24)
[2017-01-05] MEDS: THIAMINE HCL 100 MG TABLET (FP) PO SCH (21:56)
[2017-01-05] MEDS: diphenhydrAMINE HCL 50 MG CAPSULE PO PRN (21:56)
[2017-01-05] MEDS: TAMSULOSIN HCL 0.4 MG CAP.ER.24H (FP) PO SCH (21:57)
[2017-01-06] MEDS: P-EPHED 60MG/TRIPROLIDI 2.5MG TABLET PO PRN (06:39)
[2017-01-06] MEDS: INSULIN SLIDING SCALE (NOVOLOG) 1 VIAL SQ SCH ×2 (07:23→16:23)
[2017-01-06] MEDS: metFORMIN HCL 500 MG TABLET (FP) PO SCH ×2 (07:23→16:21)
[2017-01-06] MEDS ORDERED: INSULIN (NOVOLOG) ASPART 100 UNITS/ML 10ML VIAL ONE ×3 (07:26→22:06)
[2017-01-06] MEDS: PRENATAL VITAMINS W/ FOLIC ACID TABLET (FP) PO SCH (10:14)
[2017-01-06] MEDS: RITONAVIR 100 MG TABLET PO SCH (10:15)
[2017-01-06] MEDS: RALTEGRAVIR POTASSIUM 400 MG TAB PO SCH ×2 (10:15→21:21)
[2017-01-06] MEDS: RANITIDINE HCL 150 MG TABLET (FP) PO SCH ×2 (10:15→21:21)
[2017-01-06] MEDS: ETRAVIRINE 200 MG TABLET PO SCH ×2 (10:15→21:23)
[2017-01-06] MEDS: LOSARTAN POTASSIUM 50 MG TABLET (FP) PO SCH (10:15)
[2017-01-06] MEDS: LIDOCAINE 5% TOPICAL PATCH TP SCH (10:16)
[2017-01-06] MEDS: hydrALAZINE HCL 25 MG TABLET (FP) PO SCH ×2 (10:17→21:21)
[2017-01-06] MEDS: HYDROCORTISONE 1% TOPICAL CREAM 30 GM TUBE TP SCH ×2 (10:17→21:23)
[2017-01-06] MEDS: NICOTINE 14 MG/24 HOURS TOPICAL PATCH TD SCH (10:19)
[2017-01-06] MEDS: MAG HYDROX/AL HYDROX/SIMETH 30 ML UNIT-DOSE CUP PO PRN (16:23)
--- NOTE | 2017-01-06 20:39 | PN ---
S Progress Note Note: finger stick 528 insulin coverage 12 units given + metformin 500 mg begin megace dietary consultation continue rehab
[2017-01-06] MEDS: CYCLOBENZAPRINE HCL 10 MG TABLET (FP) PO PRN (21:21)
[2017-01-06] MEDS ORDERED: INSULIN (NOVOLOG) ASPART 100 UNITS/ML 10ML VIAL SQ ONE (21:21)
[2017-01-06] MEDS: TAMSULOSIN HCL 0.4 MG CAP.ER.24H (FP) PO SCH (21:21)
[2017-01-06] MEDS: diphenhydrAMINE HCL 50 MG CAPSULE PO PRN (21:21)
[2017-01-06] MEDS: IBUPROFEN 400 MG TABLET (FP) PO PRN (21:22)
[2017-01-06] MEDS: THIAMINE HCL 100 MG TABLET (FP) PO SCH (21:23)
[2017-01-07] MEDS: P-EPHED 60MG/TRIPROLIDI 2.5MG TABLET PO PRN (06:16)
[2017-01-07] MEDS: metFORMIN HCL 500 MG TABLET (FP) PO SCH ×2 (07:08→16:51)
[2017-01-07] MEDS: INSULIN SLIDING SCALE (NOVOLOG) 1 VIAL SQ SCH ×2 (07:08→16:53)
[2017-01-07] MEDS ORDERED: INSULIN (NOVOLOG) ASPART 100 UNITS/ML 10ML VIAL ONE (07:08)
[2017-01-07] MEDS: RANITIDINE HCL 150 MG TABLET (FP) PO SCH ×2 (09:47→21:18)
[2017-01-07] MEDS: ETRAVIRINE 200 MG TABLET PO SCH ×2 (09:47→21:21)
[2017-01-07] MEDS: PRENATAL VITAMINS W/ FOLIC ACID TABLET (FP) PO SCH (09:47)
[2017-01-07] MEDS: MEGESTROL ACETATE 400 MG/10 ML UNIT DOSE CUP PO SCH (09:47)
[2017-01-07] MEDS: LIDOCAINE 5% TOPICAL PATCH TP SCH (09:47)
[2017-01-07] MEDS: RALTEGRAVIR POTASSIUM 400 MG TAB PO SCH ×2 (09:47→21:18)
[2017-01-07] MEDS: RITONAVIR 100 MG TABLET PO SCH (09:48)
[2017-01-07] MEDS: HYDROCORTISONE 1% TOPICAL CREAM 30 GM TUBE TP SCH ×2 (09:48→21:20)
[2017-01-07] MEDS: hydrALAZINE HCL 25 MG TABLET (FP) PO SCH ×2 (09:48→21:20)
[2017-01-07] MEDS: LOSARTAN POTASSIUM 50 MG TABLET (FP) PO SCH (09:49)
[2017-01-07] MEDS: NICOTINE 14 MG/24 HOURS TOPICAL PATCH TD SCH (09:49)
[2017-01-07] MEDS: CYCLOBENZAPRINE HCL 10 MG TABLET (FP) PO PRN (21:18)
[2017-01-07] MEDS: THIAMINE HCL 100 MG TABLET (FP) PO SCH (21:18)
[2017-01-07] MEDS: diphenhydrAMINE HCL 50 MG CAPSULE PO PRN (21:19)
[2017-01-07] MEDS: TAMSULOSIN HCL 0.4 MG CAP.ER.24H (FP) PO SCH (21:19)
[2017-01-08] MEDS: diphenhydrAMINE HCL 50 MG CAPSULE PO PRN ×2 (01:06→21:30)
[2017-01-08] MEDS: INSULIN SLIDING SCALE (NOVOLOG) 1 VIAL SQ SCH ×3 (07:24→16:38)
[2017-01-08] MEDS: metFORMIN HCL 500 MG TABLET (FP) PO SCH (07:24)
[2017-01-08] MEDS ORDERED: INSULIN (NOVOLOG) ASPART 100 UNITS/ML 10ML VIAL ONE (07:26)
[2017-01-08] MEDS: ETRAVIRINE 200 MG TABLET PO SCH ×2 (09:57→21:31)
[2017-01-08] MEDS: hydrALAZINE HCL 25 MG TABLET (FP) PO SCH ×2 (09:57→21:30)
[2017-01-08] MEDS: RALTEGRAVIR POTASSIUM 400 MG TAB PO SCH ×2 (09:57→21:30)
[2017-01-08] MEDS: LOSARTAN POTASSIUM 50 MG TABLET (FP) PO SCH (09:57)
[2017-01-08] MEDS: RITONAVIR 100 MG TABLET PO SCH (09:57)
[2017-01-08] MEDS: RANITIDINE HCL 150 MG TABLET (FP) PO SCH ×2 (09:57→21:30)
[2017-01-08] MEDS: MEGESTROL ACETATE 400 MG/10 ML UNIT DOSE CUP PO SCH (09:57)
[2017-01-08] MEDS: LIDOCAINE 5% TOPICAL PATCH TP SCH (09:58)
[2017-01-08] MEDS: NICOTINE 14 MG/24 HOURS TOPICAL PATCH TD SCH (09:59)
[2017-01-08] MEDS: PRENATAL VITAMINS W/ FOLIC ACID TABLET (FP) PO SCH (10:01)
[2017-01-08] MEDS: HYDROCORTISONE 1% TOPICAL CREAM 30 GM TUBE TP SCH ×2 (11:49→21:30)
[2017-01-08] MEDS: THIAMINE HCL 100 MG TABLET (FP) PO SCH (21:30)
[2017-01-08] MEDS: CYCLOBENZAPRINE HCL 10 MG TABLET (FP) PO PRN (21:30)
[2017-01-08] MEDS: TAMSULOSIN HCL 0.4 MG CAP.ER.24H (FP) PO SCH (21:30)
[2017-01-09] MEDS: P-EPHED 60MG/TRIPROLIDI 2.5MG TABLET PO PRN (06:46)
[2017-01-09] MEDS: INSULIN SLIDING SCALE (NOVOLOG) 1 VIAL SQ SCH ×3 (06:48→16:37)
[2017-01-09] MEDS: MEGESTROL ACETATE 400 MG/10 ML UNIT DOSE CUP PO SCH (09:53)
[2017-01-09] MEDS: ETRAVIRINE 200 MG TABLET PO SCH ×2 (09:53→21:43)
[2017-01-09] MEDS: RITONAVIR 100 MG TABLET PO SCH (09:53)
[2017-01-09] MEDS: RANITIDINE HCL 150 MG TABLET (FP) PO SCH ×2 (09:53→21:43)
[2017-01-09] MEDS: RALTEGRAVIR POTASSIUM 400 MG TAB PO SCH ×2 (09:53→21:43)
[2017-01-09] MEDS: PRENATAL VITAMINS W/ FOLIC ACID TABLET (FP) PO SCH (09:53)
[2017-01-09] MEDS: LOSARTAN POTASSIUM 50 MG TABLET (FP) PO SCH (09:53)
[2017-01-09] MEDS: hydrALAZINE HCL 25 MG TABLET (FP) PO SCH ×2 (09:54→21:43)
[2017-01-09] MEDS: LIDOCAINE 5% TOPICAL PATCH TP SCH (09:54)
[2017-01-09] MEDS: NICOTINE 14 MG/24 HOURS TOPICAL PATCH TD SCH (09:54)
[2017-01-09] MEDS: HYDROCORTISONE 1% TOPICAL CREAM 30 GM TUBE TP SCH ×2 (09:54→21:43)
[2017-01-09] MEDS ORDERED: INSULIN (NOVOLOG) ASPART 100 UNITS/ML 10ML VIAL ONE ×3 (11:58→22:09)
[2017-01-09] MEDS: diphenhydrAMINE HCL 50 MG CAPSULE PO PRN (21:42)
[2017-01-09] MEDS: CYCLOBENZAPRINE HCL 10 MG TABLET (FP) PO PRN (21:42)
[2017-01-09] MEDS: TAMSULOSIN HCL 0.4 MG CAP.ER.24H (FP) PO SCH (21:42)
[2017-01-09] MEDS: THIAMINE HCL 100 MG TABLET (FP) PO SCH (21:42)
[2017-01-09] MEDS ORDERED: INSULIN (NOVOLOG) ASPART 100 UNITS/ML 10ML VIAL SQ ONE (21:45)
[2017-01-10] MEDS: INSULIN SLIDING SCALE (NOVOLOG) 1 VIAL SQ SCH ×3 (06:18→16:51)
[2017-01-10] MEDS: MEGESTROL ACETATE 400 MG/10 ML UNIT DOSE CUP PO SCH (10:06)
[2017-01-10] MEDS: PRENATAL VITAMINS W/ FOLIC ACID TABLET (FP) PO SCH (10:07)
[2017-01-10] MEDS: LOSARTAN POTASSIUM 50 MG TABLET (FP) PO SCH (10:07)
[2017-01-10] MEDS: RALTEGRAVIR POTASSIUM 400 MG TAB PO SCH ×2 (10:07→21:35)
[2017-01-10] MEDS: RANITIDINE HCL 150 MG TABLET (FP) PO SCH ×2 (10:07→21:34)
[2017-01-10] MEDS: LIDOCAINE 5% TOPICAL PATCH TP SCH (10:08)
[2017-01-10] MEDS: hydrALAZINE HCL 25 MG TABLET (FP) PO SCH ×2 (10:08→21:34)
[2017-01-10] MEDS: HYDROCORTISONE 1% TOPICAL CREAM 30 GM TUBE TP SCH ×2 (10:08→23:30)
[2017-01-10] MEDS: ETRAVIRINE 200 MG TABLET PO SCH ×2 (10:08→21:34)
[2017-01-10] MEDS: NICOTINE 14 MG/24 HOURS TOPICAL PATCH TD SCH (10:46)
[2017-01-10] MEDS: RITONAVIR 100 MG TABLET PO SCH (10:46)
[2017-01-10] MEDS: metFORMIN HCL 500 MG TABLET (FP) PO SCH (16:49)
[2017-01-10] MEDS ORDERED: INSULIN (NOVOLOG) ASPART 100 UNITS/ML 10ML VIAL ONE (16:49)
[2017-01-10] MEDS: TAMSULOSIN HCL 0.4 MG CAP.ER.24H (FP) PO SCH (21:34)
[2017-01-10] MEDS: THIAMINE HCL 100 MG TABLET (FP) PO SCH (21:34)
[2017-01-10] MEDS: diphenhydrAMINE HCL 50 MG CAPSULE PO PRN (21:35)
[2017-01-10] MEDS: INSULIN DETEMIR 100 UNITS/ML MDV SQ SCH (21:36)
[2017-01-11] MEDS: INSULIN SLIDING SCALE (NOVOLOG) 1 VIAL SQ SCH ×3 (06:11→16:53)
[2017-01-11] MEDS ORDERED: INSULIN (NOVOLOG) ASPART 100 UNITS/ML 10ML VIAL ONE ×2 (06:12→19:12)
[2017-01-11] MEDS: metFORMIN HCL 500 MG TABLET (FP) PO SCH ×2 (06:13→16:51)
[2017-01-11] MEDS: P-EPHED 60MG/TRIPROLIDI 2.5MG TABLET PO PRN (07:29)
[2017-01-11] MEDS: RANITIDINE HCL 150 MG TABLET (FP) PO SCH ×2 (09:42→21:21)
[2017-01-11] MEDS: LOSARTAN POTASSIUM 50 MG TABLET (FP) PO SCH (09:42)
[2017-01-11] MEDS: hydrALAZINE HCL 25 MG TABLET (FP) PO SCH ×2 (09:42→22:10)
[2017-01-11] MEDS: RALTEGRAVIR POTASSIUM 400 MG TAB PO SCH ×2 (09:42→21:21)
[2017-01-11] MEDS: HYDROCORTISONE 1% TOPICAL CREAM 30 GM TUBE TP SCH ×2 (09:43→22:10)
[2017-01-11] MEDS: ETRAVIRINE 200 MG TABLET PO SCH ×2 (09:43→22:10)
[2017-01-11] MEDS: LIDOCAINE 5% TOPICAL PATCH TP SCH (09:44)
[2017-01-11] MEDS: NICOTINE 14 MG/24 HOURS TOPICAL PATCH TD SCH (09:44)
[2017-01-11] MEDS: RITONAVIR 100 MG TABLET PO SCH (09:44)
[2017-01-11] MEDS: PRENATAL VITAMINS W/ FOLIC ACID TABLET (FP) PO SCH (09:44)
[2017-01-11] MEDS: diphenhydrAMINE HCL 50 MG CAPSULE PO PRN (21:21)
[2017-01-11] MEDS: CYCLOBENZAPRINE HCL 10 MG TABLET (FP) PO PRN (21:21)
[2017-01-11] MEDS: THIAMINE HCL 100 MG TABLET (FP) PO SCH (21:21)
[2017-01-11] MEDS: TAMSULOSIN HCL 0.4 MG CAP.ER.24H (FP) PO SCH (21:21)
[2017-01-11] MEDS: MAG HYDROX/AL HYDROX/SIMETH 30 ML UNIT-DOSE CUP PO PRN (21:22)
[2017-01-11] MEDS: INSULIN DETEMIR 100 UNITS/ML MDV SQ SCH (21:23)
[2017-01-12] MEDS: metFORMIN HCL 500 MG TABLET (FP) PO SCH ×2 (06:30→16:46)
[2017-01-12] MEDS: INSULIN SLIDING SCALE (NOVOLOG) 1 VIAL SQ SCH ×3 (07:57→17:11)
[2017-01-12] MEDS ORDERED: INSULIN (NOVOLOG) ASPART 100 UNITS/ML 10ML VIAL ONE ×3 (07:59→21:16)
[2017-01-12] MEDS: RALTEGRAVIR POTASSIUM 400 MG TAB PO SCH ×2 (09:43→21:19)
[2017-01-12] MEDS: PRENATAL VITAMINS W/ FOLIC ACID TABLET (FP) PO SCH (09:43)
[2017-01-12] MEDS: RITONAVIR 100 MG TABLET PO SCH (09:43)
[2017-01-12] MEDS: RANITIDINE HCL 150 MG TABLET (FP) PO SCH ×2 (09:43→21:19)
[2017-01-12] MEDS: ETRAVIRINE 200 MG TABLET PO SCH ×2 (09:43→21:22)
[2017-01-12] MEDS: LOSARTAN POTASSIUM 50 MG TABLET (FP) PO SCH (09:43)
[2017-01-12] MEDS: NICOTINE 14 MG/24 HOURS TOPICAL PATCH TD SCH (09:45)
[2017-01-12] MEDS: MAGNESIUM HYDROX 2400MG/30ML ORAL SUSPENSION 30 ML CUP PO PRN (09:47)
[2017-01-12] MEDS: hydrALAZINE HCL 25 MG TABLET (FP) PO SCH ×2 (09:49→21:19)
[2017-01-12] MEDS: LIDOCAINE 5% TOPICAL PATCH TP SCH (09:49)
[2017-01-12] MEDS: HYDROCORTISONE 1% TOPICAL CREAM 30 GM TUBE TP SCH ×2 (10:42→21:20)
[2017-01-12] MEDS: CYCLOBENZAPRINE HCL 10 MG TABLET (FP) PO PRN (14:39)
[2017-01-12] MEDS ORDERED: INSULIN DETEMIR 100 UNITS/ML MDV SQ ONE (21:17)
[2017-01-12] MEDS: THIAMINE HCL 100 MG TABLET (FP) PO SCH (21:19)
[2017-01-12] MEDS: TAMSULOSIN HCL 0.4 MG CAP.ER.24H (FP) PO SCH (21:19)
[2017-01-12] MEDS: diphenhydrAMINE HCL 50 MG CAPSULE PO PRN (21:20)
[2017-01-12] MEDS: INSULIN DETEMIR 100 UNITS/ML MDV SQ SCH (21:21)
[2017-01-13] MEDS: metFORMIN HCL 500 MG TABLET (FP) PO SCH ×2 (06:25→16:44)
[2017-01-13] MEDS: INSULIN SLIDING SCALE (NOVOLOG) 1 VIAL SQ SCH ×3 (06:26→16:45)
[2017-01-13] MEDS: PRENATAL VITAMINS W/ FOLIC ACID TABLET (FP) PO SCH (10:20)
[2017-01-13] MEDS: RANITIDINE HCL 150 MG TABLET (FP) PO SCH ×2 (10:20→21:17)
[2017-01-13] MEDS: LOSARTAN POTASSIUM 50 MG TABLET (FP) PO SCH (10:20)
[2017-01-13] MEDS: RALTEGRAVIR POTASSIUM 400 MG TAB PO SCH ×2 (10:22→21:17)
[2017-01-13] MEDS: ETRAVIRINE 200 MG TABLET PO SCH ×2 (10:23→21:18)
[2017-01-13] MEDS: LIDOCAINE 5% TOPICAL PATCH TP SCH (10:23)
[2017-01-13] MEDS: NICOTINE 14 MG/24 HOURS TOPICAL PATCH TD SCH (10:23)
[2017-01-13] MEDS: hydrALAZINE HCL 25 MG TABLET (FP) PO SCH ×2 (10:26→21:18)
[2017-01-13] MEDS: HYDROCORTISONE 1% TOPICAL CREAM 30 GM TUBE TP SCH ×2 (10:29→21:18)
[2017-01-13] MEDS: RITONAVIR 100 MG TABLET PO SCH (11:48)
[2017-01-13] MEDS ORDERED: INSULIN (NOVOLOG) ASPART 100 UNITS/ML 10ML VIAL ONE (11:49)
[2017-01-13] MEDS: diphenhydrAMINE HCL 50 MG CAPSULE PO PRN (21:17)
[2017-01-13] MEDS: CYCLOBENZAPRINE HCL 10 MG TABLET (FP) PO PRN (21:17)
[2017-01-13] MEDS: INSULIN DETEMIR 100 UNITS/ML MDV SQ SCH (21:17)
[2017-01-13] MEDS: THIAMINE HCL 100 MG TABLET (FP) PO SCH (21:17)
[2017-01-13] MEDS: TAMSULOSIN HCL 0.4 MG CAP.ER.24H (FP) PO SCH (21:18)
[2017-01-14] MEDS: INSULIN SLIDING SCALE (NOVOLOG) 1 VIAL SQ SCH ×3 (06:38→16:43)
[2017-01-14] MEDS: metFORMIN HCL 500 MG TABLET (FP) PO SCH ×2 (06:38→16:42)
[2017-01-14] MEDS: LOSARTAN POTASSIUM 50 MG TABLET (FP) PO SCH (09:33)
[2017-01-14] MEDS: RALTEGRAVIR POTASSIUM 400 MG TAB PO SCH ×2 (09:33→21:51)
[2017-01-14] MEDS: hydrALAZINE HCL 25 MG TABLET (FP) PO SCH ×2 (09:33→21:50)
[2017-01-14] MEDS: RANITIDINE HCL 150 MG TABLET (FP) PO SCH ×2 (09:33→21:50)
[2017-01-14] MEDS: RITONAVIR 100 MG TABLET PO SCH (09:34)
[2017-01-14] MEDS: ETRAVIRINE 200 MG TABLET PO SCH ×2 (09:34→21:49)
[2017-01-14] MEDS: LIDOCAINE 5% TOPICAL PATCH TP SCH (09:35)
[2017-01-14] MEDS: HYDROCORTISONE 1% TOPICAL CREAM 30 GM TUBE TP SCH ×2 (09:35→21:52)
[2017-01-14] MEDS: NICOTINE 14 MG/24 HOURS TOPICAL PATCH TD SCH (09:35)
[2017-01-14] MEDS: PRENATAL VITAMINS W/ FOLIC ACID TABLET (FP) PO SCH (09:35)
[2017-01-14] MEDS ORDERED: INSULIN (NOVOLOG) ASPART 100 UNITS/ML 10ML VIAL ONE ×2 (11:25→16:41)
[2017-01-14] MEDS: diphenhydrAMINE HCL 50 MG CAPSULE PO PRN (21:49)
[2017-01-14] MEDS: CYCLOBENZAPRINE HCL 10 MG TABLET (FP) PO PRN (21:50)
[2017-01-14] MEDS: TAMSULOSIN HCL 0.4 MG CAP.ER.24H (FP) PO SCH (21:51)
[2017-01-14] MEDS: INSULIN DETEMIR 100 UNITS/ML MDV SQ SCH (21:53)
[2017-01-14] MEDS: THIAMINE HCL 100 MG TABLET (FP) PO SCH (21:53)
[2017-01-15] MEDS: metFORMIN HCL 500 MG TABLET (FP) PO SCH ×2 (07:05→16:52)
[2017-01-15] MEDS: INSULIN SLIDING SCALE (NOVOLOG) 1 VIAL SQ SCH ×3 (07:08→16:53)
[2017-01-15] MEDS: ETRAVIRINE 200 MG TABLET PO SCH ×2 (09:43→21:29)
[2017-01-15] MEDS: LOSARTAN POTASSIUM 50 MG TABLET (FP) PO SCH (09:43)
[2017-01-15] MEDS: RANITIDINE HCL 150 MG TABLET (FP) PO SCH ×2 (09:43→21:27)
[2017-01-15] MEDS: NICOTINE 14 MG/24 HOURS TOPICAL PATCH TD SCH (09:43)
[2017-01-15] MEDS: RITONAVIR 100 MG TABLET PO SCH (09:43)
[2017-01-15] MEDS: RALTEGRAVIR POTASSIUM 400 MG TAB PO SCH ×2 (09:43→21:28)
[2017-01-15] MEDS: hydrALAZINE HCL 25 MG TABLET (FP) PO SCH ×2 (09:43→21:27)
[2017-01-15] MEDS: PRENATAL VITAMINS W/ FOLIC ACID TABLET (FP) PO SCH (09:43)
[2017-01-15] MEDS: HYDROCORTISONE 1% TOPICAL CREAM 30 GM TUBE TP SCH ×2 (09:44→21:30)
[2017-01-15] MEDS: LIDOCAINE 5% TOPICAL PATCH TP SCH (09:45)
[2017-01-15] MEDS ORDERED: INSULIN (NOVOLOG) ASPART 100 UNITS/ML 10ML VIAL ONE ×2 (11:26→16:52)
[2017-01-15] MEDS: THIAMINE HCL 100 MG TABLET (FP) PO SCH (21:26)
[2017-01-15] MEDS: CYCLOBENZAPRINE HCL 10 MG TABLET (FP) PO PRN (21:26)
[2017-01-15] MEDS: diphenhydrAMINE HCL 50 MG CAPSULE PO PRN (21:27)
[2017-01-15] MEDS: TAMSULOSIN HCL 0.4 MG CAP.ER.24H (FP) PO SCH (21:28)
[2017-01-15] MEDS: INSULIN DETEMIR 100 UNITS/ML MDV SQ SCH (21:30)
[2017-01-16] MEDS: metFORMIN HCL 500 MG TABLET (FP) PO SCH ×2 (07:18→16:52)
[2017-01-16] MEDS: INSULIN SLIDING SCALE (NOVOLOG) 1 VIAL SQ SCH ×3 (07:18→16:53)
[2017-01-16] MEDS ORDERED: INSULIN (NOVOLOG) ASPART 100 UNITS/ML 10ML VIAL ONE ×2 (07:18→11:41)
[2017-01-16] MEDS: RANITIDINE HCL 150 MG TABLET (FP) PO SCH ×2 (09:42→21:22)
[2017-01-16] MEDS: PRENATAL VITAMINS W/ FOLIC ACID TABLET (FP) PO SCH (09:42)
[2017-01-16] MEDS: RITONAVIR 100 MG TABLET PO SCH (09:42)
[2017-01-16] MEDS: hydrALAZINE HCL 25 MG TABLET (FP) PO SCH ×2 (09:42→21:23)
[2017-01-16] MEDS: LOSARTAN POTASSIUM 50 MG TABLET (FP) PO SCH (09:42)
[2017-01-16] MEDS: ETRAVIRINE 200 MG TABLET PO SCH ×2 (09:42→21:23)
[2017-01-16] MEDS: RALTEGRAVIR POTASSIUM 400 MG TAB PO SCH ×2 (09:42→21:22)
[2017-01-16] MEDS: NICOTINE 14 MG/24 HOURS TOPICAL PATCH TD SCH (09:44)
[2017-01-16] MEDS: LIDOCAINE 5% TOPICAL PATCH TP SCH (09:45)
[2017-01-16] MEDS: HYDROCORTISONE 1% TOPICAL CREAM 30 GM TUBE TP SCH ×2 (10:47→21:23)
[2017-01-16] MEDS: TAMSULOSIN HCL 0.4 MG CAP.ER.24H (FP) PO SCH (21:22)
[2017-01-16] MEDS: THIAMINE HCL 100 MG TABLET (FP) PO SCH (21:22)
[2017-01-16] MEDS: CYCLOBENZAPRINE HCL 10 MG TABLET (FP) PO PRN (21:22)
[2017-01-16] MEDS: diphenhydrAMINE HCL 50 MG CAPSULE PO PRN (21:22)
[2017-01-16] MEDS: INSULIN DETEMIR 100 UNITS/ML MDV SQ SCH (21:24)
[2017-01-17] MEDS: metFORMIN HCL 500 MG TABLET (FP) PO SCH ×2 (06:11→16:41)
[2017-01-17] MEDS: INSULIN SLIDING SCALE (NOVOLOG) 1 VIAL SQ SCH ×3 (06:14→16:41)
[2017-01-17] MEDS: PRENATAL VITAMINS W/ FOLIC ACID TABLET (FP) PO SCH (09:43)
[2017-01-17] MEDS: RITONAVIR 100 MG TABLET PO SCH (09:44)
[2017-01-17] MEDS: LIDOCAINE 5% TOPICAL PATCH TP SCH (09:44)
[2017-01-17] MEDS: NICOTINE 14 MG/24 HOURS TOPICAL PATCH TD SCH (09:44)
[2017-01-17] MEDS: RALTEGRAVIR POTASSIUM 400 MG TAB PO SCH ×2 (09:44→21:36)
[2017-01-17] MEDS: LOSARTAN POTASSIUM 50 MG TABLET (FP) PO SCH (09:44)
[2017-01-17] MEDS: HYDROCORTISONE 1% TOPICAL CREAM 30 GM TUBE TP SCH ×2 (09:44→21:40)
[2017-01-17] MEDS: hydrALAZINE HCL 25 MG TABLET (FP) PO SCH ×2 (09:44→21:37)
[2017-01-17] MEDS: RANITIDINE HCL 150 MG TABLET (FP) PO SCH ×2 (09:44→21:37)
[2017-01-17] MEDS: ETRAVIRINE 200 MG TABLET PO SCH ×2 (09:47→21:40)
[2017-01-17] MEDS ORDERED: INSULIN (NOVOLOG) ASPART 100 UNITS/ML 10ML VIAL ONE ×2 (11:31→16:41)
[2017-01-17] MEDS: diphenhydrAMINE HCL 50 MG CAPSULE PO PRN (21:35)
[2017-01-17] MEDS: TAMSULOSIN HCL 0.4 MG CAP.ER.24H (FP) PO SCH (21:36)
[2017-01-17] MEDS: CYCLOBENZAPRINE HCL 10 MG TABLET (FP) PO PRN (21:37)
[2017-01-17] MEDS: MAG HYDROX/AL HYDROX/SIMETH 30 ML UNIT-DOSE CUP PO PRN (21:38)
[2017-01-17] MEDS: INSULIN DETEMIR 100 UNITS/ML MDV SQ SCH (21:38)
[2017-01-17] MEDS: THIAMINE HCL 100 MG TABLET (FP) PO SCH (21:40)
[2017-01-18] MEDS: INSULIN SLIDING SCALE (NOVOLOG) 1 VIAL SQ SCH ×3 (07:26→16:50)
[2017-01-18] MEDS ORDERED: INSULIN (NOVOLOG) ASPART 100 UNITS/ML 10ML VIAL ONE ×3 (07:26→16:49)
[2017-01-18] MEDS: metFORMIN HCL 500 MG TABLET (FP) PO SCH ×2 (07:26→16:49)
--- NOTE | 2017-01-18 08:01 | PN ---
Psychiatric Progress Note Vital Signs: Vital Signs Period Temp Pulse Resp BP Sys/Saenz Pulse Ox Last 24 Hr 97.6 F 99-111 20-20 113-152/75-88 Date of Session: 01/18/17 Chief Complaint:: Psychiatrist Discharge Note HPI: Patient addressing Alcohol and Cocaine Dependence comorbid with Nicotine Dependence, Major Depressive Disorder single episode in remission and Substance- Induced Sleep Disorder ROS: Type II DM, BPH, GERD, HIV+, HTN were medically managed Current Medications: Active Medications Generic Name Dose Route Start Last Admin Trade Name Freq PRN Reason Stop Dose Admin Acetaminophen 650 mg 12/22/16 19:44 12/28/16 09:57 Tylenol - PO 650 mg Q4H PRN Administration PAIN Al Hydroxide/Mg Hydroxide 30 ml 12/22/16 19:44 01/17/17 21:38 Mylanta Oral Suspension - PO 30 ml Q6H PRN Administration DYSPEPSIA Colloidal Oatmeal 1 applic 12/26/16 13:51 01/05/17 16:24 Aveeno Soap - TP 1 applic DAILY PRN Administration HYGEINE Cyclobenzaprine HCl 10 mg 01/02/17 14:16 01/17/17 21:37 Flexeril - PO 10 mg TID PRN Administration MUSCLE SPASMS Diphenhydramine HCl 50 mg 12/22/16 19:44 01/17/17 21:35 Benadryl - PO 50 mg HSMR1 PRN Administration INSOMNIA Etravirine 200 mg 12/22/16 22:00 01/17/17 21:40 Intelence - PO 200 mg BID SAMEER Administration Eucalyptus/Menthol/Phenol/Sorbitol 1 each 12/22/16 19:44 Cepastat Lozenge - MM Q4H PRN SORE THROAT Guaifenesin 10 ml 12/22/16 19:44 12/28/16 21:17 Robitussin Dm - PO 10 ml Q6H PRN Administration COUGH Hydralazine HCl 25 mg 12/22/16 22:00 01/17/17 21:37 Apresoline - PO 25 mg BID SAMEER Administration Hydrocortisone 1 applic 12/26/16 22:00 01/17/17 21:40 Hytone 1% Cream - TP 1 applic BID SAMEER Administration Hydroxyzine Pamoate 50 mg 12/22/16 19:44 01/01/17 22:00 Vistaril - PO 50 mg Q4H PRN Administration AGITATION Ibuprofen 400 mg 12/29/16 07:34 01/06/17 21:22 Motrin - PO 400 mg Q6H PRN Administration PAIN Insulin Aspart 1 vial 01/08/17 11:00 01/18/17 07:26 Novolog Vial Sliding Scale - SQ 10 units TIDAC SAMEER Administration Protocol Insulin Detemir 10 units 01/10/17 22:00 01/17/17 21:38 Levemir Vial SQ 10 units HS SAMEER Administration Lidocaine 1 patch 12/29/16 10:45 01/17/17 09:44 Lidoderm Patch - TP 1 patch DAILY SAMEER Administration Loperamide HCl 4 mg 12/22/16 19:44 Imodium - PO Q6H PRN DIARRHEA Losartan Potassium 100 mg 12/23/16 10:00 01/17/17 09:44 Cozaar - PO 100 mg DAILY SAMEER Administration Magnesium Citrate 300 ml 12/22/16 19:44 Citroma - PO Q48H PRN CONSTIPATION Magnesium Hydroxide 30 ml 12/22/16 19:44 01/12/17 09:47 Milk Of Magnesia - PO 30 ml DAILY PRN Administration CONSTIPATION Metformin HCl 1,000 mg 01/10/17 16:30 01/18/17 07:26 Glucophage - PO 1,000 mg BID@0700,1630 SAMEER Administration Nicotine 14 mg 12/23/16 10:00 01/17/17 09:44 Nicoderm Patch - TD 14 mg DAILY SAMEER Administration Nicotine Polacrilex 2 mg 12/22/16 19:44 Nicorette Gum - BC Q2H PRN NICOTINE REPLACEMENT RX Multivit/Folic Acid/Iron 1 tab 12/23/16 10:00 01/17/17 09:43 Vitamins ([facility]) - PO 1 tab DAILY SAMEER Administration Pseudoephedrine/Triprolidine 1 combo 12/22/16 19:44 01/11/17 07:29 Actifed - PO 1 combo TID PRN Administration NASAL CONGESTION Raltegravir 400 mg 12/22/16 22:00 01/17/17 21:36 Isentress - PO 400 mg BID SAMEER Administration Ranitidine HCl 150 mg 12/22/16 22:00 01/17/17 21:37 Zantac - PO 150 mg BID SAMEER Administration Ritonavir 100 mg 12/23/16 10:00 01/17/17 09:44 Norvir - PO 100 mg DAILY SAMEER Administration Tamsulosin HCl 0.4 mg 12/22/16 22:00 01/17/17 21:36 Flomax - PO 0.4 mg HS SAMEER Administration Thiamine HCl 100 mg 12/22/16 22:00 01/17/17 21:40 Vitamin B1 - PO 100 mg HS SAMEER Administration Current Side Effect: No Lab tests ordered: Yes Lab tests reviewed: Yes Provider note:: Patient will complete this program on 01/19/17. He has met his treatment goals and will continue to address his issues in outpatient at [facility].He verbalized understanding the negative consequences of his addiction and from his participation in this program, he has been able to realize that women and money are his triggers and by the knowledge instilled in him, he feels better prepared to manage them. He is stable for discharge on 01/19/17 Total face to face time:: 35 Mental Status Exam - Mental Status Exam Alert and Oriented to: Time, Place, Person Cognitive Function: Fair Patient Appearance: Well Groomed Mood: Hopeful, Euthymic Affect: Appropriate Patient Behavior: Cooperative Speech Pattern: Clear Voice Loudness: Normal Thought Process: Intact Thought Disorder: Not Present Hallucinations: Denies Suicidal Ideation: Denies Homicidal Ideation: Denies Insight/Judgement: Fair Sleep: Fair Appetite: Good Muscle strength/Tone: Normal Gait/Station: Normal Psychiatric Treatment Plan - Problem List (1) Alcohol dependence with uncomplicated withdrawal Current Visit: Yes (2) Cocaine dependence Current Visit: Yes (3) Nicotine dependence Current Visit: Yes Qualifiers: Nicotine product type: cigarettes Substance use status: in withdrawal Qualified Code(s): F17.213 - Nicotine dependence, cigarettes, with withdrawal (4) Substance-induced sleep disorder Current Visit: Yes (5) BPH (benign prostatic hyperplasia) Current Visit: Yes Qualifiers: Prostatic enlargement morphology: non-nodular Lower urinary tract symptom presence: symptoms absent Qualified Code(s): N40.0 - Enlarged prostate without lower urinary tract symptoms (6) Diabetes mellitus, type II, insulin dependent Current Visit: Yes (7) GERD (gastroesophageal reflux disease) Current Visit: Yes Qualifiers: Esophagitis presence: without esophagitis Qualified Code(s): K21.9 - Gastro-esophageal reflux disease without esophagitis (8) HIV (human immunodeficiency virus infection) Current Visit: Yes (9) Hypertension Current Visit: Yes Qualifiers: Hypertension type: essential hypertension Qualified Code(s): I10 - Essential (primary) hypertension (10) MDD (major depressive disorder), single episode, in full remission Current Visit: Yes Initial treatment plan: Patient will be discharged tomorrow and referred to [facility] for outpatient treatment
[2017-01-18] MEDS: PRENATAL VITAMINS W/ FOLIC ACID TABLET (FP) PO SCH (09:40)
[2017-01-18] MEDS: LOSARTAN POTASSIUM 50 MG TABLET (FP) PO SCH (09:40)
[2017-01-18] MEDS: ETRAVIRINE 200 MG TABLET PO SCH ×2 (09:40→22:46)
[2017-01-18] MEDS: RITONAVIR 100 MG TABLET PO SCH (09:40)
[2017-01-18] MEDS: RALTEGRAVIR POTASSIUM 400 MG TAB PO SCH ×2 (09:40→21:42)
[2017-01-18] MEDS: hydrALAZINE HCL 25 MG TABLET (FP) PO SCH ×2 (09:41→21:44)
[2017-01-18] MEDS: NICOTINE 14 MG/24 HOURS TOPICAL PATCH TD SCH (09:41)
[2017-01-18] MEDS: LIDOCAINE 5% TOPICAL PATCH TP SCH (09:41)
[2017-01-18] MEDS: HYDROCORTISONE 1% TOPICAL CREAM 30 GM TUBE TP SCH ×2 (09:43→22:46)
[2017-01-18] MEDS: RANITIDINE HCL 150 MG TABLET (FP) PO SCH ×2 (09:43→21:43)
[2017-01-18 20:13] VITALS: PULSE 108
[2017-01-18] MEDS: THIAMINE HCL 100 MG TABLET (FP) PO SCH (21:42)
[2017-01-18] MEDS: TAMSULOSIN HCL 0.4 MG CAP.ER.24H (FP) PO SCH (21:42)
[2017-01-18] MEDS: CYCLOBENZAPRINE HCL 10 MG TABLET (FP) PO PRN (21:43)
[2017-01-18] MEDS: INSULIN DETEMIR 100 UNITS/ML MDV SQ SCH (22:43)
[2017-01-19] MEDS: metFORMIN HCL 500 MG TABLET (FP) PO SCH (06:53)
[2017-01-19] MEDS: INSULIN SLIDING SCALE (NOVOLOG) 1 VIAL SQ SCH (06:55)
[2017-01-19 07:24] VITALS: BP 144/86; TEMP 98.2
[2017-01-19] MEDS: RALTEGRAVIR POTASSIUM 400 MG TAB PO SCH (09:40)
[2017-01-19] MEDS: PRENATAL VITAMINS W/ FOLIC ACID TABLET (FP) PO SCH (09:40)
[2017-01-19] MEDS: LOSARTAN POTASSIUM 50 MG TABLET (FP) PO SCH (09:40)
[2017-01-19] MEDS: RANITIDINE HCL 150 MG TABLET (FP) PO SCH (09:40)
[2017-01-19] MEDS: LIDOCAINE 5% TOPICAL PATCH TP SCH (09:41)
[2017-01-19] MEDS: RITONAVIR 100 MG TABLET PO SCH (09:41)
[2017-01-19] MEDS: ETRAVIRINE 200 MG TABLET PO SCH (09:41)
[2017-01-19] MEDS: NICOTINE 14 MG/24 HOURS TOPICAL PATCH TD SCH (09:41)
[2017-01-19] MEDS: HYDROCORTISONE 1% TOPICAL CREAM 30 GM TUBE TP SCH (09:41)
[2017-01-19] MEDS: hydrALAZINE HCL 25 MG TABLET (FP) PO SCH (09:58)
== END 2017-01-19 09:45 | disposition home or self-care (01) | DRG 772 ==
LOC: YASAS 18:45 → Y3W 20:04
PROVIDERS: ADMIT Psychiatry & Neurology Psychiatry; ATTEND Psychiatry & Neurology Psychiatry
PROC: HZ42ZZZ Group Counseling for Substance Abuse Treatment, Cognitive-Behavioral (ICD-10-PCS; principal; 2017-01-19)
DX: F10.230 Alcohol dependence with withdrawal, uncomplicated (principal); F14.20 Cocaine dependence, uncomplicated; F17.213 Nicotine dependence, cigarettes, with withdrawal; F19.282 Other psychoactive substance dependence with psychoactive substance-induced sleep disorder; F33.9 Major depressive disorder, recurrent, unspecified; Z21 Asymptomatic human immunodeficiency virus [HIV] infection status; I10 Essential (primary) hypertension; K21.9 Gastro-esophageal reflux disease without esophagitis; E11.9 Type 2 diabetes mellitus without complications; Z79.4 Long term (current) use of insulin; N40.0 Benign prostatic hyperplasia without lower urinary tract symptoms
CPT/HCPCS: 36415; 80053; 81003; 81015; 85027; 86593; 87389; 93005; 93010